=== PATIENT | male | born 1990 | race African-American/Black ===

== ENCOUNTER 2016-12-23 10:36 | Emergency (ER) | payer SELFPAY ==
[~2016-12-23] VITALS: Ht 299.7 cm; Wt 104.3 kg
[~2016-12-23 10:36] MED LIST: NOR10T
[2016-12-23] MEDS ORDERED: cefTRIAXone SOD 1,000 MG VL IM ONE (11:30)
[2016-12-23] MEDS ORDERED: LIDOCAINE 1% HCL (LOCAL ANESTH.) INJ 20ML MDV ONE (12:15)
[2016-12-23 12:35] VITALS: BP 145/88
== END 2016-12-23 12:57 | disposition home or self-care (01) ==
LOC: ER 10:36
DX: L03.115 Cellulitis of right lower limb (principal); I10 Essential (primary) hypertension; F17.210 Nicotine dependence, cigarettes, uncomplicated; Z88.8 Allergy status to other drugs, medicaments and biological substances; Z79.899 Other long term (current) drug therapy
CPT/HCPCS: 73630; 96372; 99284; J0696; J2001

== ENCOUNTER 2017-04-11 16:22 | Emergency (ER) | payer SELFPAY ==
[~2017-04-11] VITALS: Ht 177.8 cm; Wt 112.5 kg
[2017-04-11 16:35] VITALS: BP 168/90
[2017-04-11] MEDS ORDERED: cefTRIAXone SOD 1,000 MG VL IM ONE (17:00)
== END 2017-04-11 17:39 | disposition left against medical advice (07) ==
LOC: ER 16:29
DX: J03.90 Acute tonsillitis, unspecified (principal); I10 Essential (primary) hypertension; F17.210 Nicotine dependence, cigarettes, uncomplicated; F12.10 Cannabis abuse, uncomplicated; F15.10 Other stimulant abuse, uncomplicated; Z88.8 Allergy status to other drugs, medicaments and biological substances; Z53.29 Procedure and treatment not carried out because of patient's decision for other reasons
CPT/HCPCS: J0696

== ENCOUNTER 2018-01-08 00:38 | Emergency (ER) | payer MEDICAID ==
[~2018-01-08] VITALS: Ht 180.3 cm; Wt 104.3 kg
[2018-01-08 01:16] VITALS: BP 165/114
== END 2018-01-08 01:42 | disposition left against medical advice (07) ==
LOC: ER 00:38
DX: R06.02 Shortness of breath (principal); Z53.21 Procedure and treatment not carried out due to patient leaving prior to being seen by health care provider

== ENCOUNTER 2018-05-21 18:22 | Emergency (ER) | payer MEDICAID ==
[~2018-05-21] VITALS: Ht 180.3 cm; Wt 106.6 kg
[2018-05-21 18:33] VITALS: BP 190/123
[2018-05-21] MEDS ORDERED: cloNIDine HCL 0.1 MG TAB PO ONE (18:45)
[2018-05-21 19:49] LABS: Basophils # (auto) 0 uL; Basophils % (auto) 0.5 % (0.0-2.0); Eosinophils # (auto) 0.1 uL; Eosinophils % (auto) 0.8 % (0.0-7.0); Hematocrit 48.5 % (41.0-53.0); Hemoglobin 16.2 g/dL (13.5-17.5); Lymphocytes # (auto) 1.8 uL; Lymphocytes % (auto) 19.4 % (10.0-50.0); Mean Corpuscular Hgb Conc. 33.4 g/dL (32.0-36.0); Mean Corpuscular Volume 95.8 fL (80.0-100.0); Monocytes # (auto) 0.8 uL; Monocytes % (auto) 8.2 % (0.0-12.0); Neutrophils # (auto) 6.7 uL; Neutrophils % (auto) 71.1 % (37.0-80.0); Nucleated Red Blood Cells % 0.1 %; Platelet Count (auto) 305 10^3/uL (140-450); Red Blood Cells 5.06 10^6/uL (4.5-5.90); Red Cell Distribution Width 13.1 % (11.8-14.3); White Blood Cell 9.4 10^3/uL (4.4-10.8)
[2018-05-21 20:07] LABS: Alanine Aminotransferase 82 U/L (16-61); Albumin 3.7 g/dL (3.4-5.0); Anion Gap 9 (5-15); Blood Urea Nitrogen 11 mg/dL (7-18); Calcium 8.5 mg/dL (8.5-10.1); Carbon Dioxide 25 mmol/L (21-32); Chloride 105 mmol/L (98-107); GFR African American 90 mL/min; GFR Non-African American 75 mL/min; Glucose 99 mg/dL (74-106); Potassium 4.1 mmol/L (3.5-5.1); Sodium 139 mmol/L (136-145)
[2018-05-21 20:11] LABS: Alkaline Phosphatase 110 U/L (45-117); Aspartate Aminotransferase 26 U/L (15-37); Bilirubin, Total 0.5 mg/dL (0.2-1.0); Total Protein 7.9 g/dL (6.4-8.2)
== END 2018-05-21 23:00 | disposition left against medical advice (07) ==
LOC: ER 18:27
DX: K08.89 Other specified disorders of teeth and supporting structures (principal); Z53.21 Procedure and treatment not carried out due to patient leaving prior to being seen by health care provider
CPT/HCPCS: 36415; 80053; 85025; 93005

== ENCOUNTER 2021-01-04 17:54 | Emergency (ER) | payer MEDICAID ==
[~2021-01-04] VITALS: Ht 180.3 cm; Wt 104.3 kg
[2021-01-04] MEDS ORDERED: TETANUS-DIPTH-ACEL PERTUSSIS 0.5ML SYR Tdap IM ONE (18:15)
[2021-01-04] MEDS ORDERED: HYDROcodone-ACET 5/325MG TAB PO ONE (18:15)
[2021-01-04] MEDS ORDERED: LIDOCAINE 1% HCL (LOCAL ANESTH.) INJ 20ML MDV ID ONE (18:15)
[2021-01-04 19:23] VITALS: BP 158/104
[2021-01-04] MEDS ORDERED: BACITRACIN TOP OINT 1 UD PKG TOP ONE (19:30)
== END 2021-01-04 19:53 | disposition home or self-care (01) ==
LOC: EEVIPCON 17:54 → ER 17:54
DX: S41.112A Laceration without foreign body of left upper arm, initial encounter (principal); I10 Essential (primary) hypertension; F17.210 Nicotine dependence, cigarettes, uncomplicated; F12.10 Cannabis abuse, uncomplicated; F15.10 Other stimulant abuse, uncomplicated; Z88.8 Allergy status to other drugs, medicaments and biological substances; W26.0XXA Contact with knife, initial encounter; Y93.89 Activity, other specified; Y92.89 Other specified places as the place of occurrence of the external cause; Y99.8 Other external cause status
CPT/HCPCS: 12004; 73060; 90471; 90715; 99283; J2001

== ENCOUNTER 2021-01-17 20:52 | Emergency (ER) | payer MEDICAID ==
[~2021-01-17] VITALS: Ht 177.8 cm; Wt 106.6 kg
[2021-01-17 21:25] VITALS: BP 186/100
== END 2021-01-18 00:44 | disposition home or self-care (01) ==
LOC: ER 20:52
DX: S41.112D Laceration without foreign body of left upper arm, subsequent encounter (principal); E66.9 Obesity, unspecified; Z68.33 Body mass index [BMI] 33.0-33.9, adult; I10 Essential (primary) hypertension; F17.210 Nicotine dependence, cigarettes, uncomplicated; Z79.899 Other long term (current) drug therapy; Z88.6 Allergy status to analgesic agent; Z88.8 Allergy status to other drugs, medicaments and biological substances; W26.0XXD Contact with knife, subsequent encounter

== ENCOUNTER 2021-04-15 05:36 | Emergency (ER) | payer MEDICAID ==
[~2021-04-15] VITALS: Ht 177.8 cm; Wt 108.9 kg
[2021-04-15 05:36] VITALS: BP 173/118
[2021-04-15] MEDS ORDERED: cloNIDine HCL 0.1 MG TAB PO ONE (06:00)
== END 2021-04-15 07:23 | disposition left against medical advice (07) ==
LOC: ER 05:36
DX: R50.9 Fever, unspecified (principal); Z53.21 Procedure and treatment not carried out due to patient leaving prior to being seen by health care provider